=== PATIENT | male | born 1950 | race Caucasian/White ===

== ENCOUNTER 2023-02-25 11:48 | Emergency (ER) | payer MEDICARE, OTHER ==
[~2023-02-25] VITALS: Ht 185.4 cm; Wt 92.3 kg
[~2023-02-25 11:48] MED LIST: ASPI-611 PO; ATOR10TA PO
[2023-02-25 12:40] LABS: CLARITY,URINE CLEAR (Clear); COLOR,URINE YELLOW (Yellow); GLUCOSE, URINE NEGATIVE (Neg); KETONES,URINE NEGATIVE (Neg); LEUKOCYTE ESTERASE ,URINE NEGATIVE (Neg); NITRITES, URINE NEGATIVE (Neg); OCCULT BLOOD,URINE NEGATIVE (Neg); PH,URINE 6.5 (4.8-8.0); PROTEIN,URINE NEGATIVE (Neg)
[2023-02-25 12:42] LABS: UA COLLECTION TYPE CLN CATCH MIDSTREAM
[2023-02-25 12:44] LABS: BASOPHILS # (AUTO) 0.1 X10'3 (0-0.2); BASOPHILS % (AUTO) 0.7 % (0-1); EOSINOPHILS # (AUTO) 0.2 X10'3 (0-0.9); EOSINOPHILS % (AUTO) 2.3 % (0-6); HEMATOCRIT 40.7 % (42.0-52.0); HEMOGLOBIN 13.5 g/dl (14.0-17.9); LYMPHOCYTES # (AUTO) 1.5 X10'3 (1.1-4.8); MEAN CORPUSCULAR HEMOGLOBIN 31.7 PG (27.0-31.0); MEAN CORPUSCULAR HGB CONC 33.2 g/dL (33.0-36.5); MEAN CORPUSCULAR VOLUME 95.3 FL (78-98); MEAN PLATELET VOLUME 9.2 FL (7.4-10.4); MONOCYTES # (AUTO) 0.8 X10'3 (0-0.9); MONOCYTES % (AUTO) 10.2 % (2-12); NEUTROPHILS # (AUTO) 5.1 X10'3 (1.8-7.7); NEUTROPHILS % (AUTO) 66.8 % (42-75); PLATELET COUNT 212 X10'3 (140-440); RED BLOOD COUNT 4.27 X10'6 (4.70-6.10); RED CELL DISTRIBUTION WIDTH 14.1 % (11.5-14.5); WHITE BLOOD COUNT 7.6 X10'3 (4.5-11.0)
[2023-02-25 13:03] LABS: ALANINE AMINOTRANSFERASE 23 U/L (12-78); ALBUMIN 3.8 G/DL (3.4-5.0); ALBUMIN/GLOBULIN RATIO 1.1 (1.1-1.5); ALKALINE PHOSPHATASE 96 IU/L (46-116); ANION GAP 10 (8-16); ASPARTATE AMINO TRANSFERASE 16 U/L (10-37); BILIRUBIN,TOTAL 0.8 MG/DL (0.1-1.0); BLOOD UREA NITROGEN 20 MG/DL (7-18); BUN/CREATININE RATIO 21.5 (10.0-20.0); CALCIUM 9.1 MG/DL (8.5-10.1); CHLORIDE 106 MMOL/L (99-107); CREATININE 0.93 MG/DL (0.60-1.10); GLUCOSE 127 MG/DL (70-104); LIPASE 108 U/L (73-393); POTASSIUM 3.9 MMOL/L (3.5-5.1); SODIUM 140 MMOL/L (135-145); TOTAL CARBON DIOXIDE 24.4 MMOL/L (24-32); TOTAL PROTEIN 7.3 G/DL (6.4-8.2); eGFR 79 ML/MIN
[2023-02-25] MEDS ORDERED: LIDOcaine 5% patch TP STA (15:44)
[2023-02-25] MEDS ORDERED: ketorolac trometh inj. 60 MG/2 ML VIAL IM ONE (15:45)
[2023-02-25] MEDS ORDERED: CYCL-1 PO (15:48)
[2023-02-25] MEDS ORDERED: LIDO700A32 TOP (15:48)
[2023-02-25] MEDS ORDERED: IBUP-1986 PO (15:48)
[2023-02-25 16:04] VITALS: BP 147/73
== END 2023-02-25 16:21 | disposition home or self-care (01) ==
LOC: ER 11:49
DX: M62.830 Muscle spasm of back (principal); M54.6 Pain in thoracic spine
CPT/HCPCS: 36415; 71045; 76700; 76770; 80053; 81003; 83690; 85025; 96372; 99285; J1885

== ENCOUNTER → 2023-03-15 | Outpatient (CLI) | payer MEDICARE, OTHER ==
[~2023-03-15] MED LIST changes: +CYCL-1 PO; +IBUP-1986 PO; +LIDO700A32 TOP
== END | disposition home or self-care (01) ==
LOC: RAD 09:59
PROVIDERS: ATTEND Specialist
DX: S32.030A Wedge compression fracture of third lumbar vertebra, initial encounter for closed fracture (principal); S32.040A Wedge compression fracture of fourth lumbar vertebra, initial encounter for closed fracture; S22.070A Wedge compression fracture of T9-T10 vertebra, initial encounter for closed fracture; M51.36 Other intervertebral disc degeneration, lumbar region; M51.34 Other intervertebral disc degeneration, thoracic region; M48.061 Spinal stenosis, lumbar region without neurogenic claudication; M51.26 Other intervertebral disc displacement, lumbar region; X58.XXXA Exposure to other specified factors, initial encounter; Y93.89 Activity, other specified; Y92.89 Other specified places as the place of occurrence of the external cause; Y99.8 Other external cause status
CPT/HCPCS: 72146; 72148

== ENCOUNTER 2025-07-21 07:14 | Emergency (ER) | payer MEDICARE, OTHER ==
[~2025-07-21] VITALS: Ht 182.9 cm; Wt 88.2 kg
[~2025-07-21 07:14] MED LIST changes: +LIDO-52 TOP; -LIDO700A32 TOP
--- NOTE | 2025-07-21 07:42 | Physician Documentation ---
History of Present Illness ~ Chief Complaint: Dizziness Stated Complaint: DIZZINESS Time Seen by MD: 07:31 Primary Medical Doctor: Bryce SALCIDO This is a pleasant 74-year-old gentleman with a prior history of vertigo, who comes in today for evaluation of spinning sensation that woke him up from sleep at 4:30 a.m.. No obvious trigger provocation. Similar to prior vertigo. Accom panied by nausea, no vomiting. He states that the symptoms of palliated if he turns to his right side or fixates in the stationary object. Worse when he rapidly moves his head. Denies any chest pain or difficulty breathing. Denies falling. Denies striking his head. He is on Eliquis noncompliant with his medication but denies any headache. Denies any focal neurologic deficits when inquired in plain [place]. No concern for tobacco, alcohol or illicit substances use Medication Reconciliation Allergies: Coded Allergies: No Known Allergies (Unverified , 11/26/13) Scheduled Aspirin (Aspir 81), 81 MG PO DAILY, (Reported) Atorvastatin Calcium (Lipitor), 20 MG PO DAILY Cyclobenzaprine* (Cyclobenzaprine*), 1 TAB PO Q8H Ibuprofen (Ibuprofen), 1 TAB PO Q8H Lidocaine (Lidoderm), 1 PATCH TOP DAILY Scheduled PRN Meclizine HCl (Meclizine HCl), 1 TAB PO Q8H PRN for dizziness/vertigo Past Medical History Past Medical History: Extremity Fracture Past Surgical History: orthopedic surgeries Lives with: Spouse Lives In: Home Occupation: retired Review of Systems ROS 10 point review of systems was performed and unless noted above in HPI is negative for acute process/complaint. Physical Exam Vital Signs: Temperature: 97.6, Heart Rate: 74, Respiratory Rate: 14, BP: 137/85, Pulse Oximetry: 95, Weight: 88.180 Oxygen Flow Rate: 0 Physical Exam GENERAL: Awake, alert, oriented, GCS 15, no apparent distress, non-toxic appearing, answers questions, follows commands appropriately. Examined in bed 9. HEENT: Atraumatic, normocephalic, pupils equal, extraocular muscles intact, sclerae anicteric, mucus membranes moist, oropharynx is clear, no stridor. NECK: supple, full active range of motion, trachea midline, no thyromegaly, no lymphadenopathy, no JVD. CARDIOVASCULAR: regular rate/rhythm, no murmurs/gallops/rubs, Pulses are 2+ in all extremities and symmetric. Capillary refill less than 2 seconds. PULMONARY: Nonlabored, good air movement ,no respiratory distress, speaking in full sentences, clear to auscultation bilaterally, no wheezing, no ronchi, no rales, no accessory muscle use. GASTROINTESTINAL: Soft, non-tender, non-distended, normal active bowel sounds, no organomegaly, no pulsatile masses, no CVA tenderness. NEUROLOGIC: Lucid with normal mental status. Normal facial symmetry. Moves all extremities symmetrically and with purpose. No truncal ataxia. Speech is fluid without evidence of dysarthria or aphasia, no focal deficits appreciated. MUSCULOSKELETAL: There is full range of motion of all extremities. There is no joint pain or joint swelling or joint erythema. There is no muscle pain or tenderness or swelling. EXTREMITIES: warm, well-perfused, no cyanosis, no clubbing, no edema, no acute deformities. Skin: warm, dry, no rashes or lesions, no jaundice, no petechiae orpurpura. No ecchymosis. PSYCHIATRIC: Normal affect, normal insight, normal concentration. Focused exam: [] Progress Results/Orders Results/Orders Completed Orders - GAVIN KAMARA DO Meclizine Tablets (Antivert Tablet) (07/21/25 07:40) Ondansetron Disint. Tablet (Zofran Odt T (07/21/25 07:40) Cbc/Diff (07/21/25 07:36) Urinalysis, Cult If Indicated (07/21/25 07:36) PBNP (07/21/25 07:36) MG (07/21/25 07:36) Hs Troponin I W Calculations (07/21/25 07:36) CMP (07/21/25 07:36) Medications Received in ER Medications (Trade) Dose Ordered Sig/Cherie Route PRN Reason Start Time Stop Time Status Last Admin Dose Admin (Antivert tablet) 25 mg ONCE ONCE PO 07/21/25 07:40 07/21/25 07:41 DC 07/21/25 07:49 25 MG (Zofran ODT tablet) 4 mg ONCE ONCE PO 07/21/25 07:40 07/21/25 07:41 DC 07/21/25 07:49 4 MG Vital Signs 07/21/25 07/21/25 07/21/25 07:21 07:30 07:31 Temp 97.6 Pulse 74 Resp 14 14 B/P (MAP) 137/85 Pulse Ox 95 95 O2 Delivery Room Air* [place] Nasal Cannula* O2 Flow Rate 0 0 FiO2 N/A Laboratory Tests Test 07/21/25 07:55 07/21/25 08:27 White Blood Count 5.6 Red Blood Count 4.14 L Hemoglobin 13.2 L Hematocrit 38.9 L Mean Corpuscular Volume 93.9 Mean Corpuscular Hemoglobin 31.8 H Mean Corpuscular Hemoglobin Concent 33.8 Red Cell Distribution Width 13.2 Platelet Count 203 Mean Platelet Volume 8.6 Neutrophils (%) (Auto) 76.3 H Lymphocytes (%) (Auto) 14.5 L Monocytes (%) (Auto) 5.8 Eosinophils (%) (Auto) 2.8 Basophils (%) (Auto) 0.6 Neutrophils # (Auto) 4.3 Lymphocytes # (Auto) 0.8 L Monocytes # (Auto) 0.3 Eosinophils # (Auto) 0.2 Basophils # (Auto) 0.0 CBC Comment Sodium Level 141 Potassium Level 3.9 Chloride Level 107 Carbon Dioxide Level 28.2 Anion Gap 6 L Blood Urea Nitrogen 14 Creatinine 0.87 Estimated GFR/1.73 m2 85 BUN/Creatinine Ratio 16.1 Glucose Level 169 H Calcium Level 8.2 L Magnesium Level 1.9 Total Bilirubin 0.7 Aspartate Amino Transf (AST/SGOT) 17 Alanine Aminotransferase (ALT/SGPT) 16 Alkaline Phosphatase 98 Troponin I High Sensitivity 8 Pro-B-Type Natriuretic Peptide 178 Total Protein 7.4 Albumin 3.4 Globulin 4.0 Albumin/Globulin Ratio 0.9 L Chemistry Comments Urine Specimen Description Non-specified Urine Color Yellow Urine Clarity Clear Urine pH 6.0 Urine Specific [place] 1.020 Urine Protein Negative Urine Glucose (UA) Negative Urine Ketones Negative Urine Occult Blood Negative Urine Nitrite Negative Urine Bilirubin Negative Urine Urobilinogen 0.2 Urine Leukocyte Esterase Negative Urine Culture Indicated Not ind Volume Urine Centrifuged 10 ml Urine Comment Medical Decision Making Additional information obtaine: old records, other (EMS) Findings Facility Status: ED Holds, E process The plan was discussed with the patient, who demonstrates clear understanding of the plan and is in agreement with the plan unless otherwise noted in the chart. All questions have been answered, all concerns were addressed unless otherwise documented. I was available throughout their ED stay for frequent reassessment and questions. Differential Diagnoses (considered and possible or likely): [Vertigo, neuritis, labyrinthitis, unlikely to be acute intracranial process, unlikely vertigo central origin. Less likely to be hypoglycemia, electrolyte derangement.] ??Differential Diagnoses (considered and unlikely, not requiring evaluation currently): [No evidence of trauma, no evidence of focal deficits to suspect a stroke.] MDM Data Please see [facility] for the following: Independent Historians and external Records Review. Historian: [Patient] Independent Historians: ?[EMS, record review] Medication Management: [Reviewed medication list] Social History and determinants: [Reviewed] Please see the body of the note for the following: Any independent interpretations of ECG, imaging studies. All vitals signs/haemodynamics, ordered tests were independently reviewed and interpreted by myself. Nursing triage complaint and vitals reviewed, additional nursing notes were reviewed as available and I agree unless otherwise noted or documented in contradiction in the chart Vital Signs: Independently reviewed Labs: Independently interpreted Imaging: Independently interpreted Old Medical Records: Independently reviewed, see [facility] for relevant summary and information Pulse Oximetry: [96%] interpreted as [normal on room air] by me Additionally notably showing: [Hemodynamics reviewed. He is not febrile, not tachycardic, no evidence of hypotension respiratory distress. CBC normal, no leukocytosis, no anemia, normal platelets. Chemistry is unremarkable. UA nondiagnostic for UTI.] Tests considered but not ordered include: [Advanced imaging has been considerably had prior history of vertigo, and he denies any trauma, he does not have any signs or symptoms of central vertigo.] Social Determinants of Health Impact: Patient was evaluated in [facility] [place] to healthcare due to below par ratio of patient to medical providers. [] Comorbid Conditions Impacting Present Evaluation and Care/Treatment: [Multiple, see list] Management Discussions with other Healthcare Providers: [] Treatment and Disposition Medication Management (Given or considered): [Meclizine]. See EMR for details Consideration for Hospitalization/Escalation/Deescalation of Care: Admission for observation has been considered, [however the patient is able to tolerate p.o., their symptoms are controlled, they are able to rely on oral medications, and their chief complaint/diagnosis can be managed on outpatient basis.] ?ED Course:?[Date: Jul 21, 2025 Time: 09:38 Patient is improved.] ?Shared decision making:?[Patient is hemodynamically stable for discharge home with follow with their primary care provider. [ ] Specific and cautious return precautions provided and discussed with full understanding. Any incidental findings were also discussed and follow up recommendations given. [] All que stions answered. Patient/family were able to verbalize back return precautions. Patient/family agree to plan. Copies of imaging and laboratory studies were provided.] Code status:?FULL Please see the full Electronic Medical Record for full details of nursing documentation, medications list, other records of complete past medical history and conditions, vital signs, laboratory studies, and any radiologic study interpretations by radiologists. Portions of this note were completed using [employer] dictation software and as a result there may exist minor errors in spelling. I have reviewed elements of past family and social history and agree as included in note. Differential Dx:Considerations: Include: dehydration, electrolyte imbalance, hypoglycemia, labyrinthitis, vertigo peripheral, vestibular neuronitis; Unlikely: CVA, encephalopathy, hypotension, myasathenia gravis, myocardial infarction, respiratory failure, TIA, vertigo central Departure Disposition: 01 HOME / SELF CARE / HOMELESS Impression: Primary Impression: Vertigo Condition: Improved Discharge Instructions: Vertigo Referrals: NO PRIMARY CARE PROVIDER (PCP) Prescriptions Meclizine HCl (Meclizine HCl) 25 Mg Tablet 1 TAB PO Q8H PRN for dizziness/vertigo for 10 Days, #30 TAB Prov: GAVIN KAMARA DO 07/21/25 Education Educated: Patient Educated regarding: diagnosis, treatment, prognosis, need for follow up Signature Scribe Signature: No scribe Attestation: Date: Jul 21, 2025 Time: 07:42 This note accurately reflects clinical decisions, work performed by myself, DO ASAD Balbuena NICHOLAS M DO Jul 21, 2025 07:42
[2025-07-21] MEDS: ondansetron 4mg rapidly disintigrating tab PO ONE (07:49)
[2025-07-21 08:07] LABS: MEAN PLATELET VOLUME 8.6 FL (7.4-10.4); RED CELL DISTRIBUTION WIDTH 13.2 % (11.5-14.5)
[2025-07-21 08:22] LABS: CREATININE 0.87 MG/DL (0.60-1.10); TOTAL CARBON DIOXIDE 28.2 MMOL/L (24-32); eCRCL 79 ML/MIN; eGFR 85 ML/MIN
[2025-07-21 08:30] LABS: PRO BRAIN NATRIURETIC PEPTIDE 178 PG/ML (0-450)
[2025-07-21 08:33] LABS: LEUKOCYTE ESTERASE ,URINE NEGATIVE (Neg); NITRITES, URINE NEGATIVE (Neg); OCCULT BLOOD,URINE NEGATIVE (Neg)
[2025-07-21 08:42] LABS: UA COLLECTION TYPE NON-SPECIFIED
[2025-07-21] MEDS ORDERED: MECL-302 PO (09:31)
[2025-07-21 09:39] VITALS: BP 139/72; PULSE 64; RESP 14; TEMP 98; O2SAT 96
== END 2025-07-21 09:50 | disposition home or self-care (01) ==
LOC: ER 07:15
DX: R42 Dizziness and giddiness (principal); Z79.01 Long term (current) use of anticoagulants; Z79.82 Long term (current) use of aspirin; Z79.899 Other long term (current) drug therapy; Z98.890 Other specified postprocedural states
CPT/HCPCS: 36415; 80053; 81003; 83735; 83880; 84484; 85025; 99283; J8597